=== PATIENT | female | born 1950 | race Caucasian/White ===

== ENCOUNTER → 2023-07-28 11:41 | Outpatient (REF) | payer MEDICARE, OTHER, SELFPAY | LOC: HWRAD 11:41 | PROVIDERS: ATTENDING PHYSICIAN Family Medicine | DX: R51.9 Headache, unspecified (principal) | CPT/HCPCS: 70450 ==

== ENCOUNTER → 2023-12-09 12:20 | Outpatient (REF) | payer MEDICARE, OTHER, SELFPAY | LOC: HWRAD 12:20 | PROVIDERS: ATTENDING PHYSICIAN Family Medicine | DX: J02.9 Acute pharyngitis, unspecified (principal); Z20.828 Contact with and (suspected) exposure to other viral communicable diseases; S20.211D Contusion of right front wall of thorax, subsequent encounter | CPT/HCPCS: 71101; 71120 ==

== ENCOUNTER → 2024-01-20 11:13 | Outpatient (REF) | payer MEDICARE, OTHER, SELFPAY | LOC: HWWDC 11:13 | PROVIDERS: ATTENDING PHYSICIAN Obstetrics & Gynecology Gynecology; FAMILY PHYSICIAN Family Medicine | DX: Z12.31 Encounter for screening mammogram for malignant neoplasm of breast (principal) | CPT/HCPCS: 77063; 77067 ==

== ENCOUNTER → 2024-02-09 20:43 | Outpatient (REF) | payer MEDICARE, OTHER, SELFPAY | LOC: MRI 20:43 | PROVIDERS: ATTENDING PHYSICIAN Specialist; FAMILY PHYSICIAN Family Medicine | DX: M54.16 Radiculopathy, lumbar region (principal) | CPT/HCPCS: 72158; A9575 ==

== ENCOUNTER → 2024-03-19 11:02 | Outpatient (REF) | payer MEDICARE, OTHER, SELFPAY | LOC: HWRAD 11:02 | PROVIDERS: ATTENDING PHYSICIAN Physician Assistant Medical | DX: Z20.828 Contact with and (suspected) exposure to other viral communicable diseases (principal) | CPT/HCPCS: 71101; 72072 ==

== ENCOUNTER → 2024-08-03 13:42 | Outpatient (REF) | payer MEDICARE, OTHER, SELFPAY | LOC: HWRAD 13:42 | PROVIDERS: ATTENDING PHYSICIAN Specialist; FAMILY PHYSICIAN Family Medicine | DX: M25.552 Pain in left hip (principal) | CPT/HCPCS: 73502 ==

== ENCOUNTER → 2024-08-24 16:01 | Outpatient (REF) | payer MEDICARE, OTHER, SELFPAY | LOC: RAD 16:01 | PROVIDERS: ATTENDING PHYSICIAN Physician Assistant Medical; FAMILY PHYSICIAN Family Medicine | DX: R51.9 Headache, unspecified (principal) | CPT/HCPCS: 70450 ==

== ENCOUNTER → 2024-10-18 11:41 | Outpatient (REF) | payer MEDICARE, OTHER, SELFPAY | LOC: HWRAD 11:41 | PROVIDERS: ATTENDING PHYSICIAN Family Medicine | DX: M25.552 Pain in left hip (principal) | CPT/HCPCS: 73502 ==

== ENCOUNTER 2025-02-01 17:48 | Emergency (ER) | payer MEDICARE, OTHER, SELFPAY ==
[2025-02-01 18:00] VITALS: BP 163/63
[2025-02-01] MEDS: ADACEL 0.5 ML IM (20:12)
--- NOTE | 2025-02-01 20:15 | ED.GENMED ---
History of Present Illness
General
Chief Complaint: Skin Surface Trauma
Source: patient
Exam Limitations: none
Time Seen by Provider: 02/01/25 19:44
History of Present Illness
History of Present Illness:
Patient cut her right middle finger on a can. Last tetanus unknown
Past History
Past History
ED Past Medical History: Asthma, COPD, HTN, Hypercholesterolemia and Other
ED Past Surgical History: Gynecological and Orthopedic
Social History
Tobacco: Former smoker
Alcohol: Occasional
Personal:
Living: with family
Family History
Family History: Other
Phy Exam
Physical Exam
Physical Exam:
General: Nontoxic appearing in no distress
Skin: Warm and dry, no rash
Neuro: Alert, nontoxic, grossly nonfocal
Psychiatric: Good eye contact and appropriate
Musculoskeletal: 2 cm laceration right third digit distally and laterally at the tuft. Slight flexion of the distal DIP joint which is chronic. Motor or sensory neurovascular intact otherwise.
Course
Orders/Labs/Results
Orders:
Orders
02/01/25 20:09
Tetanus/Diphth/Acelpertussis [Adacel] 0.5 ml .ROUTE .STK-MED ONE
02/01/25 20:11
Tetanus/Diphth/Acelpertussis [Adacel] 0.5 ml IM .ONCE ONE
Vital Signs
Initial and Last Documented VS:
Initial Vital Signs
Temp Pulse Resp BP Pulse Ox
98.4 F 74 18 163/63 98
02/01/25 18:00 02/01/25 18:00 02/01/25 18:00 02/01/25 18:00 02/01/25 18:00
Last Documented Vital Signs
Temp Pulse Resp BP Pulse Ox
98.4 F 74 18 163/63 98
02/01/25 18:00 02/01/25 18:00 02/01/25 18:00 02/01/25 18:00 02/01/25 18:00
Procedures
Laceration Closure
Right Middle Finger:
Status of Wound: clean
Size of Wound in cm: 2
Description of Wound Edges: sharp
Preparation: cleaned with saline and cleaned with Betadine
Anesthesia: 1% Lidocaine
Revision/Debridement: routine- no revision
Wound exploration: explored to base- no FB
Type of Closure: single layer closure
Skin Closure Material: 5-0 nylon
Number of sutures: 7
*Pulse Oximetry
SaO2: 98
Oxygen Mode of Delivery: Room air
ED Attending Note
-
Portions of this chart may have been created with voice recognition software.� Occasional wrong word or��sound alike� substitutions may have occurred due to the inherent limitations of voice recognition software.
Discharge Plan
Departure
Patient Disposition: Home (Routine Discharge)
Date of Disposition: 02/01/25
Time of Disposition: 20:16
Patient with high blood pressure during this ER visit?: Yes
Discharge Problem:
Right third digit laceration
Instructions: Laceration Repair With Stitches (DC), BLOOD PRESSURE
Prescriptions:
No Action
armodafinil [Nuvigil] 250 MG tablet
250 mg PO DAILY
bupropion HCl 150 MG tablet sustained-release 12 hr
150 mg PO BID
pantoprazole 40 MG tablet,delayed release (DR/EC)
40 mg PO DAILY
montelukast 10 MG tablet
10 mg PO DAILY
albuterol sulfate 1 PUFF HFA aerosol inhaler
2 puff inhalation PRN PRN (Reason: shortness of breath)
budesonide-formoterol [Symbicort] 1 PUFF HFA aerosol inhaler
2 puff inhalation R BID
sulfasalazine 500 MG tablet
1,000 mg PO .PM
sulfasalazine 500 MG tablet
1,500 mg PO .AM
gabapentin 300 MG capsule
300 mg PO HS
Vitamin D2
50,000 units PO .TUESDAY
Hydroxyproline
60 mg INJ .[id number]
hydrocodone-acetaminophen [[place]] 1 EACH tablet
1 ea PO Q6HPRN PRN (Reason: pain) Qty: 40 0RF
Rx Instructions:
Take 1 tablet four times a day, every 6 hours for pain
lorazepam 1 MG tablet
1 mg PO TIDPRN PRN (Reason: pain/spasms) Qty: 40 0RF
lorazepam 0.5 MG tablet
0.5 mg PO Q8HPRN PRN (Reason: muscle spasms) 0RF
docusate sodium 100 MG capsule
100 mg PO BID 0RF
gabapentin 300 MG capsule
300 mg PO HS 0RF
alum-mag hydroxide-simeth [Mag-Al Plus] 30 ML suspension
30 ml PO Q4HPRN PRN (Reason: indigestion) 0RF
Referrals:
Kim Winkler DO [Family Provider, Family Practice]
Activity Restrictions/Additional Instructions:
Change dressing daily
Suture removal in about a week
Interventions
Interventions:
*Risk Screen - Suicide Last Done: 02/01/25 19:34
*General Assessment Last Done: 02/01/25 19:34
*Neglect/Abuse Screening Last Done: 02/01/25 19:34
ED-Skin Assessment Last Done: 02/01/25 19:31
Discharge Date and Time
Print Language: ARMENIAN
== END 2025-02-01 20:28 | disposition home or self-care (01) ==
LOC: EMR 17:48
PROVIDERS: EMERGENCY PHYSICIAN Emergency Medicine; FAMILY PHYSICIAN Family Medicine
DX: S61.212A Laceration without foreign body of right middle finger without damage to nail, initial encounter (principal); W26.8XXA Contact with other sharp object(s), not elsewhere classified, initial encounter; J44.89 Other specified chronic obstructive pulmonary disease; I10 Essential (primary) hypertension; E78.00 Pure hypercholesterolemia, unspecified; Z87.891 Personal history of nicotine dependence
CPT/HCPCS: 99282; 12001; 90471; 90715

== ENCOUNTER → 2025-03-29 08:11 | Outpatient (REF) | payer MEDICARE, OTHER, SELFPAY | LOC: HWWDC 08:11 | PROVIDERS: ATTENDING PHYSICIAN Obstetrics & Gynecology Gynecology; FAMILY PHYSICIAN Family Medicine | DX: Z12.31 Encounter for screening mammogram for malignant neoplasm of breast (principal) | CPT/HCPCS: 77063; 77067 ==